=== PATIENT | female | born 1935 | race Hispanic/Latino ===

== ENCOUNTER 2021-08-13 15:55 | Emergency (ER) | payer MEDICARE | END 2021-08-13 17:17 | disposition home or self-care (01) | LOC: MADERS 15:55 | DX: S20.212A Contusion of left front wall of thorax, initial encounter (principal); K21.9 Gastro-esophageal reflux disease without esophagitis; E78.5 Hyperlipidemia, unspecified; Z79.899 Other long term (current) drug therapy; W18.2XXA Fall in (into) shower or empty bathtub, initial encounter | CPT/HCPCS: 93005 ==